=== PATIENT | male | born 1950 | race Caucasian/White ===

== ENCOUNTER 2025-07-08 11:31 | Emergency (ER) | payer MEDICARE, SELFPAY ==
[2025-07-08 11:35] VITALS: BP 108/50
[2025-07-08 12:03] VITALS: BP 134/80
[2025-07-08 12:50] LABS: Glucose - Point of Care 263 mg/dl (70-99)
[2025-07-08 13:00] VITALS: BP 121/66
[2025-07-08 13:02] LABS: Hematocrit 36.7 % (39.0-52.0); Hemoglobin 12.7 g/dL (13.0-18.0); Mean Corp Hgb Conc. 34.6 g/dL (33.0-37.0); Mean Corpuscular Volume 84.6 fL (80.0-94.0); Nucleated Red Blood Cells % 0 % (-); Platelet Count 206 10^3/uL (130-400); Red Cell Dist. Width 13.5 % (11.5-14.5)
[2025-07-08 13:06] LABS: Venous Blood Gas B.E. 2.2 mmol/L (-4 to +4); Venous Blood Gas O2 Sat % 85.4 %
[2025-07-08 13:18] LABS: COVID-19 Antigen Negative (Negative)
[2025-07-08 13:21] LABS: ALT (SGPT) 38 U/L (0-50); AST (SGOT) 30 U/L (17-59); Albumin 3.5 g/dl (3.5-5.0); Alkaline Phosphatase 57 U/L (38-126); Blood Urea Nitrogen 27 mg/dl (9-20); Calcium 9.0 mg/dl (8.4-10.2); Carbon Dioxide 28 mmol/L (22-30); Chloride 101 mmol/L (98-107); Glucose 260 mg/dl (70-99); Potassium 4.5 mmol/L (3.5-5.1); Sodium 133 mmol/L (135-145); Total Protein 6.1 g/dl (6.3-8.2); eGFR > 60.00
[2025-07-08 14:00] VITALS: BP 127/72
--- NOTE | 2025-07-08 15:28 | ED.GENMED ---
History of Present Illness
<Shilo Williamson PA-C - Last Filed: 07/09/25 18:55>
General
Chief Complaint: Weakness
Time Seen by Provider: 07/08/25 12:42
History of Present Illness
History of Present Illness:
75-year-old male presents to the emergency department with spouse for evaluation of gait instability that is progressively worsening over the past several months but acutely in the past week. He has stumbled a few times but never fallen. He denies
any dizziness or this. No chest pain or shortness of breath. He has felt nauseated over the past week but no vomiting or diarrhea.
Review of Systems
<Shilo Williamson PA-C - Last Filed: 07/09/25 18:55>
Review of Systems
Allergies reviewed?: Yes
All Other Systems: ROS reviewed and negative except as documented in HPI and ROS
Phy Exam
<Shilo Williamson PA-C - Last Filed: 07/09/25 18:55>
Physical Exam
Physical Exam:
GEN: Well appearing, NAD, WDWN
HEENT: Oral mucosa moist, no scleral icterus, no nasal congestion
Cardiac: Regular rate
Lung: No respiratory distress, no tachypnea
MSK: No gross deformity or injuries
Skin: Good color, no pallor or jaundice, no rashes
Neuro: AO x3; CN II-XII grossly intact. BUE strength 5/5 in all nelson, sensation intact and symmetric. BLE strength 5/5 in all nelson, sensation intact and symmetric. Gait is mildly unsteady but he is able to ambulate without assistive device
without stumbling, no apparent foot drop
Psych: Calm, cooperative
Course
<Shilo Williamson PA-C - Last Filed: 07/09/25 18:55>
Orders/Labs/Results
Orders:
Orders
07/08/25 12:42
Bedside Glucose- Treatment ONCE
07/08/25 12:54
Acetone [B-Hydroxybutyrate] Urgent
COVID-19 Antigen Urgent
Source: Nasal Swab
Complete Blood Count/With Diff Urgent
Comprehensive Metabolic Panel Urgent
Venous Blood Gas Urgent
%Oxygen/Room Air: 98
07/08/25 13:05
CT Head W/o Iv Contrast Urgent
Comment:
Reason For Exam: gait instability
07/08/25 15:17
0.9% Sodium Chloride 1000 ml [Nss] 1,000 ml IV BOLUS
07/08/25 15:33
Urinalysis Reflex To Culture Urgent
Date Specimen was Collected: 07/08/25
Time Specimen was Collected: 15:20
Urine Microscopic Reflex Cult Urgent
Abnormal Lab Results
07/08/25 07/08/25 07/08/25
12:45 12:54 15:33
RBC 4.34 L 10^6/uL
(4.70-6.10)
Hgb 12.7 L g/dL
(13.0-18.0)
Hct 36.7 L %
(39.0-52.0)
Abs Immat Gran (auto) 0.1 H 10^3/uL
(0-0.05)
Absolute Neuts (auto) 7.1 H 10^3/uL
(1.4-6.5)
Absolute Lymphs (auto) 0.9 L 10^3/uL
(1.2-3.4)
Absolute Monos (auto) 0.9 H 10^3/uL
(0.1-0.6)
Immature Gran % 0.6 H %
(0-0.5)
Neutrophils % 79.0 H %
(42.2-75.2)
Lymphocytes % 9.6 L %
(20.5-51.1)
Monocytes % 10.4 H %
(1.7-9.3)
VBG pCO2 49 H mmHg
(35-48)
VBG pO2 54 H mmHg
(30-50)
VBG HCO3 28.3 H mmol/L
(22-27)
Sodium 133 L mmol/L
(135-145)
BUN 27 H mg/dl
(9-20)
Glucose 260 H mg/dl
(70-99)
Total Bilirubin 1.7 H mg/dl
(0.2-1.3)
Total Protein 6.1 L g/dl
(6.3-8.2)
Urine Bacteria (Reflex) Few A
(Negative)
Urine Glucose 4+ A
(Negative)
Urine Albumin (Reflex) 3+ A
(Neg - Trace)
POC Glucose 263 H mg/dl
(70-99)
07/08/25 12:54
07/08/25 12:54
Vital Signs
Initial and Last Documented VS:
Initial Vital Signs
Temp Pulse Resp BP Pulse Ox
98.5 F 79 20 108/50 97
07/08/25 11:35 07/08/25 11:35 07/08/25 11:35 07/08/25 11:35 07/08/25 11:35
Last Documented Vital Signs
Temp Pulse Resp BP Pulse Ox
98.5 F 64 18 130/99 97
07/08/25 11:35 07/08/25 17:32 07/08/25 17:32 07/08/25 17:32 07/08/25 15:32
Peterlt;Casimiro Stein PA-C - Last Filed: 07/08/25 17:21>
Orders/Labs/Results
Orders:
Orders
07/08/25 12:42
Bedside Glucose- Treatment ONCE
07/08/25 12:54
Acetone [B-Hydroxybutyrate] Urgent
COVID-19 Antigen Urgent
Source: Nasal Swab
Complete Blood Count/With Diff Urgent
Comprehensive Metabolic Panel Urgent
Venous Blood Gas Urgent
%Oxygen/Room Air: 98
07/08/25 13:05
CT Head W/o Iv Contrast Urgent
Comment:
Reason For Exam: gait instability
07/08/25 15:17
0.9% Sodium Chloride 1000 ml [Nss] 1,000 ml IV BOLUS
07/08/25 15:33
Urinalysis Reflex To Culture Urgent
Date Specimen was Collected: 07/08/25
Time Specimen was Collected: 15:20
Urine Microscopic Reflex Cult Urgent
Abnormal Lab Results
07/08/25 07/08/25 07/08/25
12:45 12:54 15:33
RBC 4.34 L 10^6/uL
(4.70-6.10)
Hgb 12.7 L g/dL
(13.0-18.0)
Hct 36.7 L %
(39.0-52.0)
Abs Immat Gran (auto) 0.1 H 10^3/uL
(0-0.05)
Absolute Neuts (auto) 7.1 H 10^3/uL
(1.4-6.5)
Absolute Lymphs (auto) 0.9 L 10^3/uL
(1.2-3.4)
Absolute Monos (auto) 0.9 H 10^3/uL
(0.1-0.6)
Immature Gran % 0.6 H %
(0-0.5)
Neutrophils % 79.0 H %
(42.2-75.2)
Lymphocytes % 9.6 L %
(20.5-51.1)
Monocytes % 10.4 H %
(1.7-9.3)
VBG pCO2 49 H mmHg
(35-48)
VBG pO2 54 H mmHg
(30-50)
VBG HCO3 28.3 H mmol/L
(22-27)
Sodium 133 L mmol/L
(135-145)
BUN 27 H mg/dl
(9-20)
Glucose 260 H mg/dl
(70-99)
Total Bilirubin 1.7 H mg/dl
(0.2-1.3)
Total Protein 6.1 L g/dl
(6.3-8.2)
Urine Bacteria (Reflex) Few A
(Negative)
Urine Glucose 4+ A
(Negative)
Urine Albumin (Reflex) 3+ A
(Neg - Trace)
POC Glucose 263 H mg/dl
(70-99)
07/08/25 12:54
07/08/25 12:54
Vital Signs
Initial and Last Documented VS:
Initial Vital Signs
Temp Pulse Resp BP Pulse Ox
98.5 F 79 20 108/50 97
07/08/25 11:35 07/08/25 11:35 07/08/25 11:35 07/08/25 11:35 07/08/25 11:35
Last Documented Vital Signs
Temp Pulse Resp BP Pulse Ox
98.5 F 64 18 130/99 97
07/08/25 11:35 07/08/25 17:32 07/08/25 17:32 07/08/25 17:32 07/08/25 15:32
<Shilo Williamson PA-C - Last Filed: 07/09/25 18:55>
MDM/Problems Addressed
MDM/Problems Addressed:
Imaging reveals reveal questionable ventricular system dilation suggestive of NPH which would explain his gait instability. Urinalysis will be sent and patient were given IV fluids for completeness. Will recommend outpatient primary care follow-up
for diagnostic/therapeutic lumbar puncture, patient does have a neurosurgeon from prior intracranial hemorrhage that he plans to follow-up with as well
<Shilo Williamson PA-C - Last Filed: 07/09/25 18:55>
*Pulse Oximetry
SaO2: 97
Oxygen Mode of Delivery: Room air
<Casimiro Stein PA-C - Last Filed: 07/08/25 17:21>
*Pulse Oximetry
Patient hypoxic: no
*Critical Care Note
Total Time (30-74mins, 75-104mins- exclusive of procedures): Not Applicable
<Casimiro Stein PA-C - Last Filed: 07/08/25 17:21>
Update Note
Update Note:
UA without infection. Stable for discharge with follow up.
ED Attending Note
<Shilo Williamson PA-C - Last Filed: 07/09/25 18:55>
-
Portions of this chart may have been created with voice recognition software.� Occasional wrong word or��sound alike� substitutions may have occurred due to the inherent limitations of voice recognition software.
Discharge Plan
Departure
Patient Disposition: Home (Routine Discharge)
Date of Disposition: 07/08/25
Time of Disposition: 17:20
Patient with high blood pressure during this ER visit?: No
Discharge Problem:
Gait instability
Referrals:
UNKNOWN - PT DOES,NOT KNOW [Family Provider]
Activity Restrictions/Additional Instructions:
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 This is a gradual progressive condition and may lead to urinary incontinence as well. Please follow-up with your primary care physician to
discuss the potential benefit of a diagnostic and therapeutic lumbar puncture. You may also follow-up with your outpatient neurosurgeon for further evaluation of this. Please know that the CT scan of your brain is not diagnostic for this condition
merely suggested. Please do not hesitate to use a cane or a walker for ambulatory assistance
Interventions
Interventions:
*Risk Screen - Suicide Last Done: 07/08/25 11:35
*General Assessment Last Done: 07/08/25 12:03
*Neglect/Abuse Screening Last Done: 07/08/25 11:35
*ED- Fall Risk Assessment Last Done: 07/08/25 11:35
*Nursing Disposition Last Done: 07/08/25 17:32
XO-Vjjbfc-Snyfzfrkqc Assessment Last Done: 07/08/25 12:03
ED- Cardiac Assessment Last Done: 07/08/25 12:03
ED- Neurological Assessment Last Done: 07/08/25 12:03
ED- Pulmonary Assessment Last Done: 07/08/25 12:03
Discharge Date and Time
Discharge Date/Time: 07/08/25 17:35
Print Language: [place]
[2025-07-08] MEDS: NSS 1000 IV (15:34)
[2025-07-08 15:47] LABS: Urine Character Clear (Clear)
[2025-07-08 15:53] LABS: Urine Red Blood Cell 0-2 /HPF (0-2); Urine Squamous Cell 0-2 /LPF (Few)
[2025-07-08 15:54] LABS: Urine White Cell 0-2 /HPF (0-5)
[2025-07-08 17:32] VITALS: BP 130/99
== END 2025-07-08 17:35 | disposition home or self-care (01) ==
LOC: EMR 11:31
PROVIDERS: Physician Assistant; EMERGENCY PHYSICIAN Emergency Medicine
DX: R26.89 Other abnormalities of gait and mobility (principal); Z86.73 Personal history of transient ischemic attack (TIA), and cerebral infarction without residual deficits
CPT/HCPCS: 99284; 96360; 70450; 80053; 81003; 81015; 82010; 82805; 82962; 85025; 87811